=== PATIENT | male | born 1970 ===

== ENCOUNTER 2021-11-08 13:52 | Emergency (ER) | payer BC ==
[2021-11-08 14:13] VITALS: BP 110/74
[2021-11-08 15:14] LABS: Basophils % (Auto) 0.8 % (0.0-1.8); Eosinophils # (Auto) 0.1 K/mm3 (0.0-0.4); Eosinophils % (Auto) 2.5 % (0.0-4.3); Hematocrit 46.6 % (35.5-45.6); Hemoglobin 15.3 gm/dl (11.8-15.2); Lymphocytes # (Auto) 0.9 K/mm3 (1.2-5.4); Lymphocytes % (Auto) 24.3 % (13.4-35.0); Mean Corpuscular HGB Conc 33 % (32-34); Mean Corpuscular Volume 89 fl (84-94); Monocytes # (Auto) 0.4 K/mm3 (0.0-0.8); Monocytes % (Auto) 11.5 % (0.0-7.3); Platelet Count 223 K/mm3 (140-440); Red Blood Count 5.23 M/mm3 (3.65-5.03); Red Cell Distribution Width 14.9 % (13.2-15.2)
[2021-11-08 15:34] LABS: Alanine Aminotransferase 15 units/L (7-56); Albumin 4.1 g/dL (3.9-5); BUN/Creatinine Ratio 13; Blood Urea Nitrogen 12 mg/dL (9-20); Calcium 8.7 mg/dL (8.4-10.2); Hemolysis Index 8
--- NOTE | 2021-11-09 09:06 | Electrocardiograph Report ---
[facility] Test Date: 2021-11-08 Test Time: 14:16:08 Pat Name: BRANDIE QUINTERO Department: Room: Gender: M Layer Out Plate Glass: ANAIS : 1970 Requested By: YAMILETH SANDERSON Order Number: [id number] Reading MD: Josef Rao Measurements Intervals Balsam Rate: 70 P: 40 LA: 172 QRS: 61 QRSD: 86 T: 62 QT: 388 QTc: 418 Interpretive Statements Sinus rhythm ST elev, probable normal early repol pattern No previous ECG available for comparison Electronically Signed On 11-09-2021 9:06:05 EDT by Josef Rao
== END 2021-11-09 05:04 | disposition left against medical advice (07) ==
LOC: ED 13:52
DX: R07.9 Chest pain, unspecified (principal); Z53.21 Procedure and treatment not carried out due to patient leaving prior to being seen by health care provider
CPT/HCPCS: 36415; 80053; 84484; 85025; 93005